=== PATIENT | female | born 1990 | race Caucasian/White ===

== ENCOUNTER 2017-07-03 12:00 | Emergency (ER) | payer BC ==
[~2017-07-03] VITALS: Ht 172.7 cm; Wt 99.8 kg
--- NOTE | ~2017-07-03 | EKG ---
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 [employer]: [id number] : 1990 Requested By: Nathan Sandhu Order Number: [id number] MD: Jovon Rowan Measurements Intervals [place] Rate: 85 P: 13 PA: 155 QRS: 80 QRSD: 85 T: 13 QT: 377 QTc: 449 Interpretive Statements Sinus rhythm No significant abnormality Baseline wander in lead(s) V2 No previous ECG available for comparison Electronically Signed On 07-03-2017 17:13:09 [employer]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
[~2017-07-03 12:00] MED LIST: ACETAMINOPHEN-1 EAC1 PO; CLARITIN10 MG; IBUPROFEN 800800 M1 PO; MEDROLDOSEPACK PO; MELATONIN3 MG; MIRALAX17 GM PO; NORCO 5-325 TA1 EACH PO; PROZAC40 MG; ROBAXIN 750 MG750 M1 PO; UNICOMPLEX M TA1 TA1; XANAX 0.5 MG0.5 MG; ZOFRAN ODT4 MG PO
[2017-07-03] MEDS ORDERED: VITAMIN D2000 UNIT PO (12:54)
[2017-07-03] MEDS ORDERED: CLARITIN10 MG PO (12:55)
[2017-07-03 12:56] LABS: URINE BILIRUBIN NEGATIVE (Negative); URINE BLOOD NEGATIVE (Negative); URINE COLOR YELLOW; URINE GLUCOSE-RANDOM* NEGATIVE (Negative); URINE KETONES NEGATIVE (Negative); URINE NITRITE NEGATIVE (Negative); URINE PROTEIN (DIPSTICK) NEGATIVE (Negative); URINE UROBILINOGEN 0.2 E.U./dl (0.2-1.0)
[2017-07-03 13:03] LABS: AMP/METHAMP Negative (Negative); BARBITURATES Negative (Negative); BENZODIAZEPINES Negative (Negative); COCAINE Negative (Negative); METHADONE Negative (Negative); OPIATES Negative (Negative); PCP Negative (Negative); THC Negative (Negative)
[2017-07-03 15:20] LABS: ABSOLUTE NEUTROPHILS 5.8 thou/uL (1.4-8.2); BASOPHILS 0.6 % (0.0-2.0); EOSINOPHILS 2.4 % (0.0-3.0); HEMOGLOBIN 11.4 gm/dL (12.0-15.0); LYMPHOCYTES 27.2 % (24.0-44.0); MCH 27.9 pg (26.0-34.0); MCHC 32.7 g/dL (28.0-37.0); MCV 85.3 fL (80.0-100.0); MONOCYTES 7.2 % (1.0-8.0); PLATELET COUNT 264 thou/uL (150-400); POLYS 62.6 % (36.0-66.0); RDW 13.7 % (10.5-14.5); WBC 9.3 thou/uL (4.0-11.0)
[2017-07-03 15:21] LABS: MANUAL DIFF NO
[2017-07-03 15:33] LABS: ANION GAP 10 mmol/L (7-16); BUN 9 mg/dL (7-18); CALCIUM 8.8 mg/dL (8.5-10.1); CHLORIDE 107 mmol/L (98-107); CO2 23 mmol/L (21-32); CREATININE 0.4 mg/dL (0.6-1.0); GLUCOSE 83 mg/dL (74-106); POTASSIUM 3.4 mmol/L (3.5-5.1); SODIUM 140 mmol/L (136-145)
[2017-07-03 15:43] LABS: ALBUMIN 3.2 g/dL (3.4-5.0); ALKALINE PHOSPHATASE 78 U/L (46-116); MAGNESIUM 1.7 mg/dL (1.8-2.4); SGOT 23 U/L (15-37); SGPT 37 U/L (30-65); TOTAL BILIRUBIN 0.2 mg/dL (<0.1-1.0); TOTAL PROTEIN 6.6 g/dL (6.4-8.2); TROPONIN-I < 0.04 ng/mL (<0.06)
[2017-07-03] MEDS ORDERED: NORCO 5-325 TA1 EACH PO (16:16)
[2017-07-03] MEDS ORDERED: ANTIVERT25 MG PO (17:14)
== END 2017-07-03 17:35 | disposition home or self-care (01) ==
LOC: ER 12:00
PROVIDERS: Emergency Medicine
DX: R42 Dizziness and giddiness (principal); F41.9 Anxiety disorder, unspecified; Z98.890 Other specified postprocedural states; Z88.2 Allergy status to sulfonamides; F10.99 Alcohol use, unspecified with unspecified alcohol-induced disorder